=== PATIENT | female | born 1985 | race Caucasian/White ===

== ENCOUNTER → 2020-09-11 11:47 | Outpatient (CLI) | payer OTHER, MEDICAID, SELFPAY ==
[2020-09-11 12:37] LABS: Hematocrit 42.7 % (36-46); Hemoglobin A1C% w Est Avg Glu 5.3 % (4.0-6.0); Mean Corpuscular HGB Conc 32.7 % (30-36); Mean Corpuscular Hemoglobin 29.1 PG (26-34); Mean Corpuscular Volume 89.1 fL (80-100); Platelet Count 253 X10^3/uL (150-400); White Blood Cell Count 6.1 X10^3/uL (4.5-11.0)
[2020-09-11 12:55] LABS: HEMOLYSIS < 15 (0-50); Iron 116 ug/dL (37-170)
[2020-09-11 13:01] LABS: Cholesterol 186 mg/dL (140-199); Glucose 87 mg/dL (70-100); HDL Cholesterol 32 mg/dL (40-60); LDL Cholesterol Calculated 110 mg/dL (<100); Triglycerides 221 mg/dL (35-150)
[2020-09-11 13:07] LABS: Percent Iron Saturation 33 % (15-50); Total Iron Binding Capacity 354 ug/dL (265-497); Transferrin 265 mg/dL (206-381)
[2020-09-11 13:29] LABS: TSH w/ Reflex to FT4 1.15 uIU/mL (0.47-4.68)
== END ==
PROVIDERS: PCP Registered Nurse Diabetes Educator; Referring Provider Registered Nurse Diabetes Educator; Visit Provider Registered Nurse Diabetes Educator
DX: E78.5 Hyperlipidemia, unspecified (principal); L65.9 Nonscarring hair loss, unspecified; N96 Recurrent pregnancy loss; R53.83 Other fatigue; R63.5 Abnormal weight gain; R73.01 Impaired fasting glucose
CPT/HCPCS: 36415; 80061; 82947; 83036; 83540; 83550; 84443; 85027

== ENCOUNTER → 2020-09-26 17:00 | Outpatient (CLI) | payer OTHER, MEDICAID, SELFPAY | PROVIDERS: PCP Registered Nurse Diabetes Educator; Referring Provider Obstetrics & Gynecology; Visit Provider Obstetrics & Gynecology | DX: N96 Recurrent pregnancy loss (principal) | CPT/HCPCS: 36415; 84144 ==

== ENCOUNTER → 2021-02-17 11:36 | Outpatient (CLI) | payer OTHER, MEDICAID, SELFPAY ==
[2021-02-17 13:47] LABS: HCG Quantitative /Beta subunit 244.5 mIU/mL
== END ==
PROVIDERS: PCP Registered Nurse Diabetes Educator; Referring Provider Obstetrics & Gynecology; Visit Provider Obstetrics & Gynecology
DX: N91.2 Amenorrhea, unspecified (principal); N96 Recurrent pregnancy loss
CPT/HCPCS: 36415; 84144; 84702